=== PATIENT | female | born 1955 | race African-American/Black ===

== ENCOUNTER 2016-12-30 19:48 | Emergency (ER) | payer OTHER ==
[2016-12-30] MEDS ORDERED: ASPIRIN 81 MG TABLET, CHEWABLE PO ONE (21:13)
--- NOTE | 2016-12-30 21:38 | EKG REPORT ---
SEVERITY:- NORMAL ECG - SINUS RHYTHM : Confirmed by: Drea Edwards 30-Dec-2016 21:37:58
--- NOTE | 2016-12-30 21:50 | RADIOLOGY REPORT (SQ) ---
EXAM DESCRIPTION: CHEST SINGLE VIEW COMPLETED DATE/TIME: 12/30/2016 9:42 pm REASON FOR STUDY: chest pain COMPARISON: 2016. NUMBER OF VIEWS: One view. TECHNIQUE: Single frontal radiographic view of the chest acquired. LIMITATIONS: None. FINDINGS: LUNGS AND PLEURA: No opacities, masses or pneumothorax. No pleural effusion. MEDIASTINUM AND HILAR STRUCTURES: Stable contours. HEART AND VASCULAR STRUCTURES: Heart normal in size. Normal vasculature. BONES: No acute findings. HARDWARE: None in the chest. OTHER: No other significant finding. IMPRESSION: NO SIGNIFICANT RADIOGRAPHIC FINDING IN THE CHEST. TECHNICAL DOCUMENTATION: JOB ID: [id number] [employer]- All Rights Reserved
[2016-12-30 22:29] LABS: ABSOLUTE EOSINOPHILS # (AUTO) 0.2 10^3/uL (0.0-0.6); ABSOLUTE LYMPHOCYTES (AUTO) 1.8 10^3/uL (0.5-4.7); ABSOLUTE MONOCYTES (AUTO) 0.6 10^3/uL (0.1-1.4); ABSOLUTE NEUT (AUTO) 5.2 10^3/uL (1.7-8.2); BASOPHILS % (AUTO) 0.5 % (0-2); EOSINOPHILS % (AUTO) 2.5 % (0-6); HEMATOCRIT 42.4 % (36.0-47.0); HEMOGLOBIN 13.4 g/dL (12.0-15.5); HGB HCT DIFFERENCE -2.2; LYMPHOCYTES % (AUTO) 22.6 % (13-45); MEAN CORPUSCULAR HGB CONC 31.7 g/dL (32.0-36.0); MEAN CORPUSCULAR VOLUME 85 fl (80-97); MONOCYTES % (AUTO) 7.9 % (3-13); RED BLOOD COUNT 4.98 10^6/uL (3.72-5.28); RED CELL DISTRIBUTION WIDTH 14.9 % (11.5-14.0); SEGMENTED NEUTROPHILS % (AUTO) 66.5 % (42-78); WHITE BLOOD COUNT 7.8 10^3/uL (4.0-10.5)
[2016-12-30 22:43] LABS: ALANINE AMINOTRANSFERASE 17 U/L (9-52); ALBUMIN 3.9 g/dL (3.5-5.0); ALKALINE PHOSPHATASE 74 U/L (38-126); ASPARTATE AMINO TRANSFERASE 12 U/L (14-36); BILIRUBIN,DIRECT 0.3 mg/dL (0.0-0.4); BILIRUBIN,TOTAL 0.4 mg/dL (0.2-1.3); BLOOD UREA NITROGEN 10 mg/dL (7-20); CALCIUM 9.1 mg/dL (8.4-10.2); CARBON DIOXIDE 27 mmol/L (22-30); CREATINE KINASE 101 U/L (30-135); CREATININE RESULT 0.76 mg/dL (0.52-1.25); GLUCOSE 110 mg/dL (75-110); POTASSIUM 3.5 mmol/L (3.6-5.0); SODIUM 141.5 mmol/L (137-145); TOTAL PROTEIN 7.4 g/dL (6.3-8.2)
[2016-12-30 22:44] LABS: ANION GAP 11 (5-19); CHLORIDE 104 mmol/L (98-107)
[2016-12-30 22:54] LABS: CREATINE KINASE MB 0.35 ng/mL (<4.55)
[2016-12-30 22:55] LABS: TROPONIN I < 0.012 ng/mL
[2016-12-31] MEDS ORDERED: LIDOCAINE 5% (700 MG) TRANSDERMAL ADH..PATCH TP ONE (00:15)
[2016-12-31] MEDS ORDERED: POTASSIUM CHLORIDE 10 MEQ TABLET.SA PO ONE (00:15)
--- NOTE | 2016-12-31 02:08 | ER Document Report ---
ED General - General Chief Complaint: Chest Pain Stated Complaint: CHEST PAIN Time Seen by Provider: 12/30/16 23:32 TRAVEL OUTSIDE OF THE [place] IN LAST 30 DAYS: No - HPI Patient complains to provider of: Shortness of breath chest wall pain Notes: Coming in for evaluation shortness of breath chest wall pain ongoing since day prior to arrival. Patient states she has been on Levaquin for the past 4 days given to her by PCP for coughing up sputum production. Patient denies currently any fever chills nausea vomiting abdominal pain diarrhea. Patient denies any recent travel. Upon my evaluation patient is asymptomatic. Chest pain worsened with movement. - Related Data Allergies/Adverse Reactions: oxycodone [From Percocet] Adverse Reaction (Mild, Verified 02/11/16 14:41) Hallucinations Home Medications: Current Home Medications Azithromycin [Azithromycin] 250 mg PO DAILY 12/31/16 [History] Levofloxacin [Levofloxacin] 500 mg PO DAILY 12/31/16 [History] Omeprazole [Omeprazole] 20 mg PO BID 12/31/16 [History] Sertraline HCl [Sertraline HCl] 50 mg PO DAILY 12/31/16 [History] Past Medical History - Social History Smoking Status: Unknown if Ever Smoked Family History: Reviewed & Not Pertinent Patient has suicidal ideation: No Patient has homicidal ideation: No - Past Medical History Cardiac Medical History: Reports: Hx Hypertension - History an physical suspicious for hypertension, she does not take any meds Renal/ Medical History: Denies: Hx Peritoneal Dialysis GI Medical History: Reports: Hx Gastroesophageal Reflux Disease Musculoskeltal Medical History: Reports Hx Arthritis - Arthritis in the knees and right shoulder Past Surgical History: Reports: Hx Section, Hx Gynecologic Surgery - 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, d&C, Hx Hysterectomy - Immunizations Hx Diphtheria, Pertussis, Tetanus Vaccination: - more than 5 yrs ago Review of Systems - Review of Systems Constitutional: No symptoms reported EENT: No symptoms reported Cardiovascular: Chest pain Respiratory: No symptoms reported Gastrointestinal: No symptoms reported Genitourinary: No symptoms reported Female Genitourinary: No symptoms reported Musculoskeletal: No symptoms reported Skin: No symptoms reported Hematologic/Lymphatic: No symptoms reported Neurological/Psychological: No symptoms reported Physical Exam - Vital signs Vitals: Temp Pulse Resp BP Pulse Ox 97.8 F 100 20 149/97 H 96 12/30/16 20:00 12/30/16 20:00 12/30/16 20:00 12/30/16 20:00 12/30/16 20:00 Interpretation: Normal - General General appearance: Appears well, Alert - HEENT Head: Normocephalic, Atraumatic Eyes: Normal Pupils: PERRL - Respiratory Respiratory status: No respiratory distress Chest status: Tender - Tenderness to palpation of substernal chest left chest does reproduce patient's pain. Breath sounds: Normal Chest palpation: Normal - Cardiovascular Rhythm: Regular Heart sounds: Normal auscultation Murmur: No - Abdominal Inspection: Normal Distension: No distension Bowel sounds: Normal Tenderness: Nontender Organomegaly: No organomegaly - Back Back: Normal, Nontender - Extremities General upper extremity: Normal inspection, Nontender, Normal color, Normal ROM , Normal temperature General lower extremity: Normal inspection, Nontender, Normal color, Normal ROM , Normal temperature, Normal weight bearing. No: Loy's sign - Neurological Neuro grossly intact: Yes Cognition: Normal Orientation: AAOx4 [place] Coma Scale Eye Opening: Spontaneous [place] Coma Scale Verbal: Oriented [place] Coma Scale Motor: Obeys Commands [place] Coma Scale Total: 15 Speech: Normal Motor strength normal: LUE, RUE, LLE, RLE Sensory: Normal - Psychological Associated symptoms: Normal affect, Normal mood - Skin Skin Temperature: Warm Skin Moisture: Dry Skin Color: Normal Course - Re-evaluation Re-evalutation: 12/31/16 02:40 The patient has atypical chest pain as the patient's chest pain is not suggestive of pulmonary embolus, cardiac ischemia, aortic dissection, or other serious etiology. Given the extremely low risk of these diagnoses further testing and evaluation for these possibilities does not appear to be indicated at this time. The patient has been instructed to return if the symptoms worsen or change in any way. - Vital Signs Vital signs: Temp Pulse Resp BP Pulse Ox 97.8 F 100 25 H 121/83 95 12/30/16 20:00 12/30/16 20:00 12/31/16 02:01 12/31/16 02:01 12/31/16 02:01 - Laboratory Result Diagrams: 12/30/16 22:15 12/30/16 22:15 Laboratory results interpreted by me: 12/30/16 12/30/16 22:15 22:15 MCHC 31.7 L RDW 14.9 H Potassium 3.5 L AST 12 L Discharge - Discharge Clinical Impression: Chest wall pain Condition: Good Disposition: HOME, SELF-CARE Instructions: Anti-Inflammatory Medication ([facility]), Chest Pain of Unclear Cause ( [facility]), Chest Wall Pain ([facility]) Additional Instructions: Your laboratory testing today does not show any signs of ischemia or heart damage. I would highly recommend she continue your antibiotics follow-up with your primary care physician. I do believe your chest pain is due to inflammation of her chest wall but some time we will treat this with anti- inflammatory medication like Motrin. Please make sure to drink plenty of water to stay Forms: Return to Work Referrals: ESTHER BERGMAN PA-C [Primary Care Provider] - Follow up as needed
[2016-12-31 02:12] VITALS: BP 121/83
== END 2016-12-31 02:21 | disposition home or self-care (01) ==
LOC: ER 19:48
DX: R07.89 Other chest pain (principal); R06.02 Shortness of breath; R05 Cough
CPT/HCPCS: 36415; 71010; 80053; 82550; 82553; 83735; 84484; 85025; 93005; 93010; 99285

== ENCOUNTER 2018-07-04 18:37 | Observation (INO) | payer OTHER ==
[2018-07-04] MEDS ORDERED: METOCLOPRAMIDE HCL ORAL SOLN 10 MG/10 ML UDCUP PO ONE (20:15)
[2018-07-04] MEDS ORDERED: LIDOCAINE 2% VISCOUS SOLN 20 ML UDCUP PO ONE (20:15)
[2018-07-04] MEDS ORDERED: MAG HYDROX/AL HYDROX/SIMETH SUSP 30 ML UDCUP PO ONE (20:15)
[2018-07-04] MEDS ORDERED: HYDROCODONE/ACETAMINOPHEN 5-325 MG TABLET PO ONE (20:16)
--- NOTE | 2018-07-04 20:16 | ER Document Report ---
ED Medical Screen (RME) - General Chief Complaint: Chest Pain Stated Complaint: CHEST PAIN Time Seen by Provider: 07/04/18 20:01 Mode of Arrival: Ambulatory TRAVEL OUTSIDE OF THE [place] IN LAST 30 DAYS: No - HPI Onset: Other - Related Data Allergies/Adverse Reactions: oxycodone [From Percocet] Adverse Reaction (Mild, Verified 02/11/16 14:41) Hallucinations Past Medical History - Past Medical History Cardiac Medical History: Reports: Hx Hypertension - History an physical suspicious for hypertension, she does not take any meds Renal/ Medical History: Denies: Hx Peritoneal Dialysis GI Medical History: Reports: Hx Gastroesophageal Reflux Disease Musculoskeltal Medical History: Reports Hx Arthritis - Arthritis in the knees and right shoulder Past Surgical History: Reports: Hx Section, Hx Gynecologic Surgery - 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 Nothing makes it better nothing makes it worse. 07/04/18 20:15 Have seen and evaluated this patient in rapid medical screening examination, he will require further evaluation reassessment and disposition determination by secondary medical provider. - Vital Signs Vital signs: Temp Pulse Resp BP Pulse Ox 98.4 F 95 18 154/98 H 98 07/04/18 18:56 07/04/18 18:56 07/04/18 18:56 07/04/18 18:56 07/04/18 18:56 Doctor's Discharge - Discharge Referrals: ESTHER BERGMAN PA-C [Primary Care Provider] - Follow up as needed
[2018-07-04 21:12] LABS: ABSOLUTE EOSINOPHILS # (AUTO) 0.2 10^3/uL (0.0-0.6); ABSOLUTE LYMPHOCYTES (AUTO) 1.3 10^3/uL (0.5-4.7); ABSOLUTE MONOCYTES (AUTO) 0.4 10^3/uL (0.1-1.4); ABSOLUTE NEUT (AUTO) 5.5 10^3/uL (1.7-8.2); BASOPHILS % (AUTO) 0.1 % (0-2); EOSINOPHILS % (AUTO) 2.3 % (0-6); HEMATOCRIT 43.7 % (36.0-47.0); HEMOGLOBIN 14.6 g/dL (12.0-15.5); LYMPHOCYTES % (AUTO) 17.5 % (13-45); MEAN CORPUSCULAR HEMOGLOBIN 28.8 pg (27.0-33.4); MEAN CORPUSCULAR HGB CONC 33.5 g/dL (32.0-36.0); MEAN CORPUSCULAR VOLUME 86 fl (80-97); MONOCYTES % (AUTO) 5.4 % (3-13); PLATELET COUNT 279 10^3/uL (150-450); RED BLOOD COUNT 5.07 10^6/uL (3.72-5.28); SEGMENTED NEUTROPHILS % (AUTO) 74.7 % (42-78); TOTAL CELLS COUNTED % (AUTO) 100 %; WHITE BLOOD COUNT 7.4 10^3/uL (4.0-10.5)
[2018-07-04 21:24] LABS: ALANINE AMINOTRANSFERASE 19 U/L (9-52); ALBUMIN 4.2 g/dL (3.5-5.0); ALKALINE PHOSPHATASE 74 U/L (38-126); ANION GAP 9 (5-19); ASPARTATE AMINO TRANSFERASE 18 U/L (14-36); BILIRUBIN,DIRECT 0.3 mg/dL (0.0-0.4); BILIRUBIN,TOTAL 0.5 mg/dL (0.2-1.3); BLOOD UREA NITROGEN 8 mg/dL (7-20); CALCIUM 9.5 mg/dL (8.4-10.2); CARBON DIOXIDE 28 mmol/L (22-30); CHLORIDE 104 mmol/L (98-107); CREATINE KINASE 82 U/L (30-135); GLUCOSE 121 mg/dL (75-110); LIPASE 51.5 U/L (23-300); POTASSIUM 4.2 mmol/L (3.6-5.0); SODIUM 140.5 mmol/L (137-145); TOTAL PROTEIN 7.6 g/dL (6.3-8.2)
[2018-07-04 21:37] LABS: CREATINE KINASE MB 0.29 ng/mL (<4.55)
[2018-07-04 21:39] LABS: TROPONIN I < 0.012 ng/mL
--- NOTE | 2018-07-04 22:14 | RADIOLOGY REPORT (SQ) ---
EXAM DESCRIPTION: CT ABDOMEN PELVIS WITH IV CONTRAST COMPLETED DATE/TME: 07/04/2018 20:14 CLINICAL HISTORY: 62 years, Female, concern for appendicitis Comparison: January 25, 2016. TECHNIQUE: Contiguous axial CT images of the abdomen and pelvis were obtained. Sagittal and coronal reformats were reviewed. This exam was performed according to our departmental dose-optimization program, which includes automated exposure control, adjustment of the mA and/or kV according to patient size and/or use of iterative reconstruction technique. FINDINGS: Lung bases: Clear. Liver:Unremarkable. No focal liver lesion. Gallbladder:Unremarkable. No gallstones. No gallbladder wall thickening or pericholecystic fluid. Spleen:Unremarkable Pancreas: Pancreas is unremarkable. Adrenal glands:Within normal limits. Kidneys/ureters: 3 x 2.5 cm left renal cyst. The right kidney is normal in appearance. No hydronephrosis or nephrolithiasis. Stomach/small bowel/colon: Stomach is unremarkable. Small bowel is unremarkable. Colon is unremarkable. Appendix: Appendix not seen with certainty. However, no inflammatory changes or fluid seen in the pericecal region and right lower quadrant. Peritoneum: No free fluid. Vascular structures: within normal limits Lymph nodes: No abnormal lymph nodes. Bladder:Unremarkable. Pelvic organs: The uterus is enlarged and heterogeneous in appearance containing a mural fibroid near the fundus measuring approximately 10 cm. There is also a pedunculated mass extending from the right aspect of the fundus measuring 5 x 8 cm probably representing a pedunculated fibroid. Bones: No acute osseous abnormality. Soft tissues: Unremarkable.. IMPRESSION: No acute intra-abdominal abnormality. Enlarged heterogeneous uterus containing at least two fibroids which have increased in size since the prior exam.
--- NOTE | 2018-07-04 22:55 | EKG REPORT ---
SEVERITY:- BORDERLINE ECG - SINUS RHYTHM PROBABLE LEFT ATRIAL ABNORMALITY : Confirmed by: Denise Banda MD 04-Jul-2018 22:52:40
[2018-07-04] MEDS ORDERED: ASPIRIN 325 MG TABLET PO ONE (23:01)
--- NOTE | 2018-07-04 23:30 | ER Document Report ---
ED General - General Chief Complaint: Chest Pain Stated Complaint: CHEST PAIN Time Seen by Provider: 07/04/18 20:01 Mode of Arrival: Ambulatory Notes: Patient is a 62-year-old female presents with complaint of pain in the substernal area of her chest as well as some pain in the epigastric region. She said this morning she initially thought it was probably related to acid reflux but she says it is little bit different than her typical acid reflux and her acid reflux medication did not make any difference in the pain. As the day went on she notes that she was getting some shortness of breath and worsening pain w ith exertion and therefore she came to the ER. She denies any vomiting. No diarrhea. She is currently she is pain-free as long as she is laying down the bed still. She denies any leg pain or leg swelling. She denies any recent cardiac stress test. She denies previous history of coronary disease. She does have a family history of coronary disease. TRAVEL OUTSIDE OF THE [place] IN LAST 30 DAYS: No - Related Data Allergies/Adverse Reactions: bee venom protein (honey bee) Allergy (Intermediate, Verified 07/05/18 06:36) oxycodone [From Percocet] Adverse Reaction (Mild, Verified 02/11/16 14:41) Hallucinations Past Medical History - Social History Smoking Status: Never Smoker Frequency of alcohol use: None Drug Abuse: None Family History: Reviewed & Not Pertinent Patient has suicidal ideation: No Patient has homicidal ideation: No - Past Medical History Cardiac Medical History: Reports: Hx Hypertension - History an physical suspicious for hypertension, she does not take any meds Renal/ Medical History: Denies: Hx Peritoneal Dialysis GI Medical History: Reports: Hx Gastroesophageal Reflux Disease Musculoskeletal Medical History: Reports Hx Arthritis - Arthritis in the knees and right shoulder Past Surgical History: Reports: Hx Section, Hx Gynecologic Surgery - 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 Denies recent illness. EENT: Denies eye, ear, throat, or mouth pain or symptoms. Denies nasal or sinus congestion. CARDIOVASCULAR: Chest pain RESPIRATORY: Denies cough, cold, or chest congestion. Denies shortness of breath, difficulty breathing, or wheezing. GASTROINTESTINAL: Some epigastric abdominal pain. Denies nausea, vomiting, or diarrhea. GENITOURINARY: Denies difficulty urinating, painful urination, burning, frequency, or blood in urine. FEMALE GENITOURINARY: Denies vaginal bleeding, abnormal or irregular periods. MUSCULOSKELETAL: Denies neck or back pain or joint pain or swelling. SKIN: Denies rash or skin lesions. NEUROLOGICAL: Denies altered mental status or loss of consciousness. Denies he adache. Denies weakness or paralysis or loss of use of either side. Denies problems with gait or speech. Denies sensory or motor loss. ALL OTHER SYSTEMS REVIEWED AND NEGATIVE. Physical Exam - Vital signs Vitals: Temp Pulse Resp BP Pulse Ox 98.4 F 95 18 154/98 H 98 07/04/18 18:56 07/04/18 18:56 07/04/18 18:56 07/04/18 18:56 07/04/18 18:56 - Notes Notes: General Appearance: Well nourished, alert, cooperative, no acute distress, no obvious discomfort. well-appearing. Vitals: reviewed, See vital signs table. Head: no swelling or tenderness to the head Eyes: PERRL, EOMI, Conjuctiva clear Mouth: No decreasd moisture Lungs: No wheezing, No rales, No rhonci, No accessory muscle use, good air exchange bilaterally. Heart: Normal rate, Regular rythm, No murmur, no rub Abdomen: Normal BS, soft, No rigidity, no reproducible abdominal tenderness to palpation., No guarding, no rebound, no abdominal masses, no organomegaly Extremities: strength 5/5 in all extremities, good pulses in all extremities, no swelling or tenderness in the extremities, no edema. Skin: warm, dry, appropriate color, no rash Neuro: speech clear, oriented x 3, normal affect, responds appropriately to questions. Course - Re-evaluation Re-evalutation: 07/05/18 09:13 Exact cause of the patient's chest pain andepigastric pain is not clear. This could be of GI origin however her typical gastric medications did not take away her symptoms and also she had started to develop shortness of breath with exertion as the day went on. This makes it hard for me to pinpoint that this is indeed from GI origin. She has a heart score 4. Feels appropriate to admit her for observation admission for workup of her chest pain. I spoke with Dr. Lazaro who agrees to evaluate the patient for admission. Dictation of this chart was performed using voice recognition software; therefore, there may be some unintended grammatical errors. - Vital Signs Vital signs: Temp Pulse Resp BP Pulse Ox 97.9 F 107 H 18 160/91 H 96 07/05/18 02:40 07/05/18 07:00 07/05/18 02:40 07/05/18 06:33 07/05/18 02:40 - Laboratory Result Diagrams: 07/04/18 20:53 07/04/18 20:53 Laboratory results interpreted by me: 07/04/18 07/04/18 07/04/18 20:53 20:53 20:53 RDW 15.0 H Glucose 121 H TSH 5.96 H Discharge - Discharge Clinical Impression: Chest pain, atypical Condition: Stable Disposition: ADMITTED OBSERVATION Admitting Provider: Hospitalist Unit Admitted: Telemetry
[2018-07-04] MEDS ORDERED: NITROGLYCERIN 0.4 MG/TAB 25 TAB/BOTTLE SL PRN (23:31)
[2018-07-04] MEDS ORDERED: MAG HYDROX/AL HYDROX/SIMETH SUSP 30 ML UDCUP PO PRN (23:31)
[2018-07-05 03:48] LABS: CHOLESTEROL 184.07 mg/dL (0-200); TRIGLYCERIDES 107 mg/dL (<150)
[2018-07-05 03:59] LABS: DIRECT LDL 107 mg/dL (<100)
--- NOTE | 2018-07-05 05:30 | PDOC H&P ---
History of Present Illness Admission Date/PCP: 07/04/18 23:34 ESTHER BERGMAN PA-C Patient complains of: Right-sided chest pain History of Present Illness: JUD CHEATHAM is a 62 year old female with a past medical history of morbid obesity, hypertension and GERD. Patient presents with epigastric and right lower chest wall pain occurring while at rest associated with nausea without vomiting or palpitations or shortness of breath. It is 2 out of 5 intensity, dull in nature, nonradiating. She is unable to identify alleviating or exacerbating factors, and omeprazole provided no relief. Patient denies previous episode, recent change in medications and otherwise feels well. Her workup is unremarkable and is referred to the hospitalist for observation Past Medical History Cardiac Medical History: Reports: Hypertension - History an physical suspicious for hypertension, she does not take any meds GI Medical History: Reports: Gastroesophageal Reflux Disease Musculoskeltal Medical History: Reports: Arthritis - Arthritis in the knees and right shoulder Psychiatric Medical History: Denies: Depression Past Surgical History Past Surgical History: Reports: Section, Hysterectomy Social History Information Source: Patient, [facility] Records Smoking Status: Never Smoker Frequency of Alcohol Use: None Hx Recreational Drug Use: No Hx Prescription Drug Abuse: No - Advance Directive Resuscitation Status: Full Code Family History Family History: Malignancy - Lung, liver cancer in mother and father Parental Family History Reviewed: Yes Children Family History Reviewed: Yes Sibling(s) Family History Reviewed.: Yes Medication/Allergy Home Medications: Azithromycin 250 mg PO DAILY 12/31/16 Levofloxacin 500 mg PO DAILY 12/31/16 Omeprazole 20 mg PO BID 12/31/16 Sertraline HCl 50 mg PO DAILY 12/31/16 Allergies/Adverse Reactions: oxycodone [From Percocet] Adverse Reaction (Mild, Verified 02/11/16 14:41) Hallucinations Review of Systems Constitutional: ABSENT: chills, fever(s), headache(s), weight gain, weight loss Eyes: ABSENT: visual disturbances Ears: ABSENT: hearing changes Cardiovascular: ABSENT: chest pain, dyspnea on exertion, edema, orthropnea, palpitations Respiratory: ABSENT: cough, hemoptysis Gastrointestinal: ABSENT: abdominal pain, constipation, diarrhea, hematemesis, hematochezia, nausea, vomiting Genitourinary: ABSENT: dysuria, hematuria Musculoskeletal: ABSENT: joint swelling Integumentary: ABSENT: rash, wounds Neurological: ABSENT: abnormal gait, abnormal speech, confusion, dizziness, focal weakness, syncope Psychiatric: ABSENT: anxiety, depression, homidical ideation, suicidal ideation Endocrine: ABSENT: cold intolerance, heat intolerance, polydipsia, polyuria Hematologic/Lymphatic: ABSENT: easy bleeding, easy bruising Physical Exam Vital Signs: Temp Pulse Resp BP Pulse Ox 97.9 F 101 H 18 177/90 H 96 07/05/18 02:40 07/05/18 02:40 07/05/18 02:40 07/05/18 02:40 07/05/18 02:40 Intake & Output 07/03/18 07/04/18 07/05/18 11:59 11:59 11:59 Weight 150 kg General appearance: PRESENT: no acute distress, well-developed, well-nourished Head exam: PRESENT: atraumatic, normocephalic Eye exam: PRESENT: conjunctiva pink, EOMI, PERRLA. ABSENT: scleral icterus Ear exam: PRESENT: normal external ear exam Mouth exam: PRESENT: moist, tongue midline Neck exam: ABSENT: carotid bruit, JVD, lymphadenopathy, thyromegaly Respiratory exam: PRESENT: clear to auscultation sergio. ABSENT: rales, rhonchi, wheezes Cardiovascular exam: PRESENT: RRR. ABSENT: diastolic murmur, rubs, systolic murmur Pulses: PRESENT: normal dorsalis pedis pul Vascular exam: PRESENT: normal capillary refill GI/Abdominal exam: PRESENT: normal bowel sounds, soft. ABSENT: distended, guarding, mass, organolmegaly, rebound, tenderness Torso Front/Back Image: 1 - Reproducible chest wall pain Rectal exam: PRESENT: deferred Extremities exam: PRESENT: full ROM. ABSENT: calf tenderness, clubbing, pedal edema Neurological exam: PRESENT: alert, awake, oriented to person, oriented to place, oriented to time, oriented to situation, CN II-XII grossly intact. ABSENT: motor sensory deficit Psychiatric exam: PRESENT: appropriate affect, normal mood. ABSENT: homicidal ideation, suicidal ideation Skin exam: PRESENT: dry, intact, warm. ABSENT: cyanosis, rash Results Laboratory Results: 07/04/18 20:53 07/04/18 20:53 07/04/18 07/04/18 07/04/18 20:53 20:53 20:53 WBC 7.4 RBC 5.07 Hgb 14.6 Hct 43.7 MCV 86 MCH 28.8 MCHC 33.5 RDW 15.0 H Plt Count 279 Seg Neutrophils % 74.7 Lymphocytes % 17.5 Monocytes % 5.4 Eosinophils % 2.3 Basophils % 0.1 Absolute Neutrophils 5.5 Absolute Lymphocytes 1.3 Absolute Monocytes 0.4 Absolute Eosinophils 0.2 Absolute Basophils 0.0 Sodium 140.5 Potassium 4.2 Chloride 104 Carbon Dioxide 28 Anion Gap 9 BUN 8 Creatinine 0.58 Est GFR ( Amer) > 60 Est GFR (Non-Af Amer) > 60 Glucose 121 H Calcium 9.5 Total Bilirubin 0.5 AST 18 ALT 19 Alkaline Phosphatase 74 Total Protein 7.6 Albumin 4.2 Triglycerides Cholesterol LDL Cholesterol Direct VLDL Cholesterol HDL Cholesterol Lipase 51.5 TSH 5.96 H 07/05/18 03:25 WBC RBC Hgb Hct MCV MCH MCHC RDW Plt Count Seg Neutrophils % Lymphocytes % Monocytes % Eosinophils % Basophils % Absolute Neutrophils Absolute Lymphocytes Absolute Monocytes Absolute Eosinophils Absolute Basophils Sodium Potassium Chloride Carbon Dioxide Anion Gap BUN Creatinine Est GFR ( Amer) Est GFR (Non-Af Amer) Glucose Calcium Total Bilirubin AST ALT Alkaline Phosphatase Total Protein Albumin Triglycerides 107 Cholesterol 184.07 LDL Cholesterol Direct 107 H VLDL Cholesterol 21.0 HDL Cholesterol 39 L Lipase TSH 07/04/18 07/04/18 07/05/18 20:53 20:53 03:25 Creatine Kinase 82 CK-MB (CK-2) 0.29 Troponin I < 0.012 < 0.012 Impressions: Abdomen/Pelvis CT 07/04/18 20:14 IMPRESSION: No acute intra-abdominal abnormality. Enlarged heterogeneous uterus containing at least two fibroids which have increased in size since the prior exam. Assessment & Plan - Diagnosis (1) Chest pain, atypical Is this a current diagnosis for this admission?: Yes Plan: Atypical chest pain though the patient's pain is atypical there are multiple risk factors for coronary artery disease and subsequently will observe and evaluation of acute coronary syndrome versus coronary artery disease with anginal equivalents. Cardiac monitoring blood pressure Q6 hours ,TSH, lipid profile, serial cardiac enzymes and cardiac stress test (2) Hypertension Is this a current diagnosis for this admission?: Yes Plan: Outpatient regiment with hydralazine as needed (3) GERD (gastroesophageal reflux disease) Is this a current diagnosis for this admission?: Yes Plan: Omeprazole twice daily (4) Morbid obesity Is this a current diagnosis for this admission?: Yes Plan: Morbid obesity will evaluate for metabolic cause with evaluation of thyroid function and dietitian consultation - Time Time Spent: 30 to 50 Minutes
[2018-07-05] MEDS: LANSOPRAZOLE 15 MG TAB.RAP.DR PO SCH ×2 (05:41→18:03)
[2018-07-05] MEDS: HYDRALAZINE HCL INJ/PF 20 MG/1 ML SDV IV PRN ×2 (05:41→21:48)
[2018-07-05] MEDS: SERTRALINE HCL 50 MG TABLET PO SCH (11:39)
[2018-07-05] MEDS ORDERED: REGADENOSON INJ 0.4 MG/5 ML DISP.SYRIN IV ONE (12:11)
[2018-07-05] MEDS ORDERED: ACETAMINOPHEN 325 MG TABLET PO PRN (12:28)
[2018-07-05] MEDS ORDERED: LANSOPRAZOLE 15 MG TAB.RAP.DR PO ONE (13:00)
--- NOTE | 2018-07-05 13:19 | PDOC PROGRESS REPORT ---
Subjective Progress Note for:: 07/05/18 Subjective:: This is 62 years old black female patient presented with chief complaint of right-sided chest pain. Patient has underlying morbid obesity, hypertension and gastroesophageal reflux disease. Her first 2 sets of cardiac enzymes are negative no EKG changes this morning patient undergoes first part of cardiac stress test the next will be done tomorrow. If it is negative patient's potential discharge for tomorrow. Reason For Visit: CHEST PAIN,MORBID OBESITY Physical Exam Vital Signs: Temp Pulse Resp BP Pulse Ox 98.5 F 104 H 18 148/92 H 97 07/05/18 07:38 07/05/18 07:38 07/05/18 07:38 07/05/18 07:38 07/05/18 07:38 Intake & Output 07/04/18 07/05/18 07/06/18 06:59 06:59 06:59 Intake Total 0 Balance 0 Weight 150 kg General appearance: PRESENT: no acute distress, morbidly obese Head exam: PRESENT: atraumatic, normocephalic Eye exam: PRESENT: conjunctiva pink Neck exam: ABSENT: carotid bruit, JVD, lymphadenopathy, thyromegaly Respiratory exam: PRESENT: clear to auscultation sergio. ABSENT: rales, rhonchi, wheezes Cardiovascular exam: PRESENT: tachycardia GI/Abdominal exam: PRESENT: normal bowel sounds, soft. ABSENT: distended, guarding, mass, organolmegaly, rebound, tenderness Neurological exam: PRESENT: alert, awake, oriented to time, oriented to situation Results Laboratory Results: 07/04/18 20:53 07/04/18 20:53 07/04/18 07/04/18 07/04/18 20:53 20:53 20:53 WBC 7.4 RBC 5.07 Hgb 14.6 Hct 43.7 MCV 86 MCH 28.8 MCHC 33.5 RDW 15.0 H Plt Count 279 Seg Neutrophils % 74.7 Lymphocytes % 17.5 Monocytes % 5.4 Eosinophils % 2.3 Basophils % 0.1 Absolute Neutrophils 5.5 Absolute Lymphocytes 1.3 Absolute Monocytes 0.4 Absolute Eosinophils 0.2 Absolute Basophils 0.0 Sodium 140.5 Potassium 4.2 Chloride 104 Carbon Dioxide 28 Anion Gap 9 BUN 8 Creatinine 0.58 Est GFR ( Amer) > 60 Est GFR (Non-Af Amer) > 60 Glucose 121 H Calcium 9.5 Total Bilirubin 0.5 AST 18 ALT 19 Alkaline Phosphatase 74 Total Protein 7.6 Albumin 4.2 Triglycerides Cholesterol LDL Cholesterol Direct VLDL Cholesterol HDL Cholesterol Lipase 51.5 TSH 5.96 H 07/05/18 03:25 WBC RBC Hgb Hct MCV MCH MCHC RDW Plt Count Seg Neutrophils % Lymphocytes % Monocytes % Eosinophils % Basophils % Absolute Neutrophils Absolute Lymphocytes Absolute Monocytes Absolute Eosinophils Absolute Basophils Sodium Potassium Chloride Carbon Dioxide Anion Gap BUN Creatinine Est GFR ( Amer) Est GFR (Non-Af Amer) Glucose Calcium Total Bilirubin AST ALT Alkaline Phosphatase Total Protein Albumin Triglycerides 107 Cholesterol 184.07 LDL Cholesterol Direct 107 H VLDL Cholesterol 21.0 HDL Cholesterol 39 L Lipase TSH 07/04/18 07/04/18 07/05/18 20:53 20:53 03:25 Creatine Kinase 82 CK-MB (CK-2) 0.29 Troponin I < 0.012 < 0.012 07/05/18 09:15 Creatine Kinase CK-MB (CK-2) Troponin I < 0.012 Impressions: Abdomen/Pelvis CT 07/04/18 20:14 IMPRESSION: No acute intra-abdominal abnormality. Enlarged heterogeneous uterus containing at least two fibroids which have increased in size since the prior exam. Assessment & Plan - Diagnosis (1) Chest pain, atypical Is this a current diagnosis for this admission?: Yes Plan: Patient is undergoing cardiac stress test. (2) GERD (gastroesophageal reflux disease) Is this a current diagnosis for this admission?: Yes Plan: Continue PPI (3) Hypertension Qualifiers: Hypertension type: essential hypertension Qualified Code(s): I10 - Essential (primary) hypertension Is this a current diagnosis for this admission?: Yes Plan: Continue home medications. (4) Morbid obesity with BMI of 45.0-49.9, adult Is this a current diagnosis for this admission?: Yes Plan: Patient advised to do lifestyle modification.
--- NOTE | 2018-07-05 19:14 | EKG REPORT ---
SEVERITY:- ABNORMAL ECG - SINUS TACHYCARDIA LEFT ATRIAL ABNORMALITY : Confirmed by: Denise Banda MD 05-Jul-2018 19:14:18
[2018-07-05] MEDS ORDERED: HYDRALAZINE HCL INJ/PF 20 MG/1 ML SDV ONE (21:29)
[2018-07-05] MEDS ORDERED: ATORVASTATIN CALCIUM 80 MG TABLET PO SCH (22:00)
[2018-07-06] MEDS: LANSOPRAZOLE 15 MG TAB.RAP.DR PO SCH (05:20)
--- NOTE | 2018-07-06 13:50 | PDOC DISCHARGE SUMMARY ---
General - Admit/Disc Date/PCP Admission Date/Primary Care Provider: 07/04/18 23:34 ESTHER BERGMAN PA-C Discharge Date: 07/06/18 - Discharge Diagnosis (1) Chest pain, atypical Is this a current diagnosis for this admission?: Yes (2) GERD (gastroesophageal reflux disease) Is this a current diagnosis for this admission?: Yes (3) Hypertension Is this a current diagnosis for this admission?: Yes (4) Morbid obesity with BMI of 45.0-49.9, adult Is this a current diagnosis for this admission?: Yes - Additional Information Resuscitation Status: Full Code Home Medications: Omeprazole 20 mg PO BID 12/31/16 History of Present Illness History of Present Illness: JUD CHEATHAM is a 62 year old femalewith a past medical history of morbid obesity, hypertension and GERD. Patient presents with epigastric and right lower chest wall pain occurring while at rest associated with nausea without vomiting or palpitations or shortness of breath. It is 2 out of 5 intensity, dull in nature, nonradiating. She is unable to identify alleviating or exacerbating factors, and omeprazole provided no relief. Patient denies previous episode, recent change in medications and otherwise feels well. Her workup is unremarkable and is referred to the hospitalist for observation Hospital Course Hospital Course: This is 62 years old black female patient presented with chief complaint of right-sided chest pain. Patient has underlying morbid obesity, hypertension and gastroesophageal reflux disease. Her first 2 sets of cardiac enzymes are negat sejal no EKG changes. This morning patient undergoes second part of cardiac stress test and it is negative. Patient remained chest pain-free. Patient is stable enough to be discharged today. I advised her to do lifestyle modification as a form of her diet regular exercise and weight loss and she v oices agreement. She is going to have a follow-up with Dr. Banda as outpatient. Physical Exam Vital Signs: Temp Pulse Resp BP Pulse Ox 98.3 F 93 20 142/89 H 94 07/06/18 12:21 07/06/18 12:21 07/06/18 12:21 07/06/18 12:21 07/06/18 12:21 Intake & Output 07/05/18 07/06/18 07/07/18 06:59 06:59 06:59 Intake Total 0 1186 Balance 0 1186 Weight 150 kg 150.8 kg General appearance: PRESENT: morbidly obese Head exam: PRESENT: atraumatic, normocephalic Eye exam: PRESENT: conjunctiva pink, EOMI, PERRLA. ABSENT: scleral icterus Ear exam: PRESENT: normal external ear exam Mouth exam: PRESENT: moist, tongue midline Neck exam: ABSENT: carotid bruit, JVD, lymphadenopathy, thyromegaly Respiratory exam: PRESENT: clear to auscultation sergio. ABSENT: rales, rhonchi, wheezes Cardiovascular exam: PRESENT: RRR. ABSENT: diastolic murmur, rubs, systolic murmur Pulses: PRESENT: normal dorsalis pedis pul Vascular exam: PRESENT: normal capillary refill GI/Abdominal exam: PRESENT: normal bowel sounds, soft. ABSENT: distended, guarding, mass, organolmegaly, rebound, tenderness Rectal exam: PRESENT: deferred Extremities exam: PRESENT: full ROM. ABSENT: calf tenderness, clubbing, pedal edema Neurological exam: PRESENT: alert, awake, oriented to person, oriented to place, oriented to time, oriented to situation, CN II-XII grossly intact. ABSENT: motor sensory deficit Psychiatric exam: PRESENT: appropriate affect, normal mood. ABSENT: homicidal ideation, suicidal ideation Skin exam: PRESENT: dry, intact, warm. ABSENT: cyanosis, rash Results Laboratory Results: 07/04/18 20:53 07/04/18 20:53 07/04/18 07/04/18 07/05/18 20:53 20:53 03:25 Creatine Kinase 82 CK-MB (CK-2) 0.29 Troponin I < 0.012 < 0.012 07/05/18 07/05/18 09:15 15:30 Creatine Kinase CK-MB (CK-2) Troponin I < 0.012 < 0.012 Impressions: Abdomen/Pelvis CT 07/04/18 20:14 IMPRESSION: No acute intra-abdominal abnormality. Enlarged heterogeneous uterus containing at least two fibroids which have increased in size since the prior exam. Qualifiers - * PATIENT BEING DISCHARGED WITH ANY OF THE FOLLOWING DIAGNOSIS: No
[2018-07-06] MEDS: SERTRALINE HCL 50 MG TABLET PO SCH (13:57)
[2018-07-06 14:20] VITALS: BP 160/91
--- NOTE | 2018-07-06 23:15 | DRAGON STRESS TEST REPORT ---
2 Day Intravenous Lexiscan Cardiolite stress test using single photon emmision computerized tomography. Date of Resting procedure: 07/05/2018. Date of Stress procedure: 07/06/2018. Ordering Provider: Dr. Augie Lazaro. Indication: Chest pain. Coronary risk factors: Age, and hypertension. Resting EKG: Sinus Rhythm. Within Normal Limits. Stress EKG: No changes of ischemia. The patient had no chest pain or discomfort, and there were no arrhythmias seen. Reason for termination: Protocol. Conclusions: Normal EKG and hemodynamic response to IV Lexiscan. Nuclear data: At rest, on 07/05/2018 the patient was given 40.9 millicuries of technetium 99m sestamibi injected intravenously. As per protocol rest gated SPECT images were obtained. Subsequently, on 07/06/2018 the patient was given intravenous Lexiscan at a dose of 0.4 mg in 5 mL intravenously, followed by flush with normal saline. Subsequently after above Lexiscan injection, the stress dose of 41.5 millicuries of technetium 99m sestamibi was injected intravenously. As per protocol stress gated images were obtained. Nuclear interpretation: Review of images showed that all segments of the myocardium had normal perfusion at rest, and normal perfusion post stress with IV Lexiscan. All segments of the myocardium had normal motion, contraction, and thickening by gated study. T. I D. ratio was normal at 1.17. There is no transient ischemic left ventricular dilatation. Computer read rest, and stress left ventricular ejection fraction were 41 %, and 49 %, respectively. Visually both the stress and rest ejection fractions were normal, and greater than 55%. Conclusion: 1. There is no scintigraphic evidence of Lexiscan induced myocardial ischemia. 2. There is no scintigraphic evidence of myocardial infarction/scar. Recommendations: Aggressive risk factor modification, and treating the underlying co- morbidities. MTDD
== END 2018-07-06 15:10 | disposition home or self-care (01) ==
LOC: ER 18:37 → EH 23:34 → 5 07-05 02:38
PROVIDERS: ADMIT Internal Medicine; ATTEND Internal Medicine
DX: R07.89 Other chest pain (principal); K21.9 Gastro-esophageal reflux disease without esophagitis; I10 Essential (primary) hypertension; E66.01 Morbid (severe) obesity due to excess calories; R00.0 Tachycardia, unspecified; R06.02 Shortness of breath; R10.13 Epigastric pain; R11.0 Nausea; Z68.42 Body mass index [BMI] 45.0-49.9, adult; Z79.899 Other long term (current) drug therapy; Z80.0 Family history of malignant neoplasm of digestive organs
CPT/HCPCS: 93005 ×2; 99285; 36415 ×2; 82553; 82550; 83690; 84443; 85025; 80053; 84484 ×2; 83036; 80061; 93017; 78452; 74177; 93010 ×2; G0378 ×4; A9500; J2785; J0360; J3490 ×2; Q9969

== ENCOUNTER 2018-07-10 19:06 | Emergency (ER) | payer OTHER ==
[2018-07-10] MEDS ORDERED: KETOROLAC TROMETHAMINE INJ/PF 30 MG/1 ML SDV IV ONE (19:38)
[2018-07-10] MEDS ORDERED: ONDANSETRON HCL INJ/PF 4 MG/2 ML SDV IV ONE (19:38)
--- NOTE | 2018-07-10 19:41 | ER Document Report ---
ED Medical Screen (RME) - General Chief Complaint: Chest Pain Stated Complaint: SHORTNESS OF BREATH Time Seen by Provider: 07/10/18 19:34 Notes: 62 years old female presents today with right upper quadrant and right lower chest wall pain about hour and a half after eating her meal at 3:00. Since then continuous pain with nausea. No vomiting. No fever chills. Denies any precordial chest pain. Denies any difficulty in breathing. Morbid obesity, right upper quadrant tenderness and right lower chest wall tenderness 2. TRAVEL OUTSIDE OF THE [place] IN LAST 30 DAYS: No - Related Data Allergies/Adverse Reactions: bee venom protein (honey bee) Allergy (Intermediate, Verified 07/05/18 06:36) oxycodone [From Percocet] Adverse Reaction (Mild, Verified 02/11/16 14:41) Hallucinations Past Medical History - Social History Chew tobacco use (# tins/day): No Frequency of alcohol use: None Drug Abuse: None - Past Medical History Cardiac Medical History: Reports: Hx Hypertension - History an physical suspicious for hypertension, she does not take any meds Renal/ Medical History: Denies: Hx Peritoneal Dialysis GI Medical History: Reports: Hx Gastroesophageal Reflux Disease Musculoskeltal Medical History: Reports Hx Arthritis - Arthritis in the knees and right shoulder Psychiatric Medical History: Denies: Hx Depression Past Surgical History: Reports: Hx Section, Hx Gynecologic Surgery - 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
--- NOTE | 2018-07-10 20:46 | RADIOLOGY REPORT (SQ) ---
EXAM DESCRIPTION: U/S ABDOMEN LIMITED W/O DOP COMPLETED DATE/TIME: 07/10/2018 8:37 pm REASON FOR STUDY: Right upper quadrant abdominal tenderness COMPARISON: None. TECHNIQUE: 01/23/2016 Dynamic and static grayscale images acquired of the abdomen and recorded on PACS. Additional selected color Doppler and spectral images recorded. LIMITATIONS: None. FINDINGS: PANCREAS: Not seen. LIVER: Increased echogenicity. No mass. LIVER VASCULATURE: Normal directional flow of the main portal vein and hepatic veins. GALLBLADDER: No stones. Normal wall thickness. No pericholecystic fluid. ULTRASOUND-DETECTED MCCRARY'S SIGN: Negative. INTRAHEPATIC DUCTS AND COMMON DUCT: CBD and intrahepatic ducts normal caliber. No filling defects. INFERIOR VENA CAVA: Not imaged. AORTA: No aneurysm. RIGHT KIDNEY: Normal size, 11.2 cm. Normal echogenicity. No solid or suspicious masses. No hydroneph rosis. No calcifications. PERITONEAL AND RIGHT PLEURAL SPACE: No ascites or effusions. OTHER: No other significant findings. IMPRESSION: Fatty infiltration of the liver. TECHNICAL DOCUMENTATION: JOB ID: [id number] [employer]- All Rights Reserved Reading location - IP/workstation name: [email or web address]
[2018-07-10 20:58] LABS: ABSOLUTE LYMPHOCYTES (AUTO) 1.3 10^3/uL (0.5-4.7); ABSOLUTE MONOCYTES (AUTO) 0.6 10^3/uL (0.1-1.4); BASOPHILS % (AUTO) 0.2 % (0-2); EOSINOPHILS % (AUTO) 0.5 % (0-6); HEMATOCRIT 42.7 % (36.0-47.0); HEMOGLOBIN 14.5 g/dL (12.0-15.5); LYMPHOCYTES % (AUTO) 14.3 % (13-45); MEAN CORPUSCULAR HEMOGLOBIN 28.6 pg (27.0-33.4); MEAN CORPUSCULAR HGB CONC 33.9 g/dL (32.0-36.0); MEAN CORPUSCULAR VOLUME 84 fl (80-97); MONOCYTES % (AUTO) 6.3 % (3-13); PLATELET COUNT 308 10^3/uL (150-450); RED BLOOD COUNT 5.07 10^6/uL (3.72-5.28); RED CELL DISTRIBUTION WIDTH 14.7 % (11.5-14.0); SEGMENTED NEUTROPHILS % (AUTO) 78.7 % (42-78); TOTAL CELLS COUNTED % (AUTO) 100 %; WHITE BLOOD COUNT 8.8 10^3/uL (4.0-10.5)
--- NOTE | 2018-07-10 21:07 | RADIOLOGY REPORT (SQ) ---
EXAM DESCRIPTION: XR CHEST 2 VIEWS COMPLETED DATE/TME: 07/10/2018 19:41 CLINICAL HISTORY: 62 years, Female, Chest pain COMPARISON: 7-17 chest NUMBER OF VIEWS: 2 TECHNIQUE: Frontal and lateral views of the chest LIMITATIONS: None. FINDINGS: Heart size is normal. Lungs are clear. No pneumothorax IMPRESSION: Negative chest copyright 2010 [employer]- All Rights Reserved
[2018-07-10 21:20] LABS: ALANINE AMINOTRANSFERASE 30 U/L (9-52); ALBUMIN 4.8 g/dL (3.5-5.0); ALKALINE PHOSPHATASE 85 U/L (38-126); ANION GAP 13 (5-19); ASPARTATE AMINO TRANSFERASE 31 U/L (14-36); BILIRUBIN,DIRECT 0.3 mg/dL (0.0-0.4); BILIRUBIN,TOTAL 0.5 mg/dL (0.2-1.3); BLOOD UREA NITROGEN 18 mg/dL (7-20); CALCIUM 9.5 mg/dL (8.4-10.2); CARBON DIOXIDE 25 mmol/L (22-30); CHLORIDE 98 mmol/L (98-107); CREATINE KINASE 105 U/L (30-135); GLUCOSE 106 mg/dL (75-110); LIPASE 80.6 U/L (23-300); POTASSIUM 3.5 mmol/L (3.6-5.0); SODIUM 136.4 mmol/L (137-145); TOTAL PROTEIN 8.3 g/dL (6.3-8.2)
[2018-07-10 21:30] LABS: CREATINE KINASE MB 0.36 ng/mL (<4.55)
[2018-07-10 21:31] LABS: TROPONIN I < 0.012 ng/mL
[2018-07-10] MEDS ORDERED: PANTOPRAZOLE SODIUM 40 MG VIAL IV ONE (21:59)
[2018-07-10] MEDS ORDERED: SUCRALFATE 1 GM TABLET PO ONE (22:00)
--- NOTE | 2018-07-10 23:31 | ER Document Report ---
ED General - General Mode of Arrival: Ambulatory Information source: Patient TRAVEL OUTSIDE OF THE [place] IN LAST 30 DAYS: No <YESICA WOMACK - Last Filed: 07/10/18 23:32> <JIGAR CLEMENTS - Last Filed: 07/11/18 01:50> - General Chief Complaint: Chest Pain Stated Complaint: SHORTNESS OF BREATH Time Seen by Provider: 07/10/18 19:34 Notes: Patient is a 62 year old female presenting to the emergency department complaining of chest pain onset today. Patient describes the chest pain as intermittent located over her sternum and to the right side of her chest. Patient states the pain intermittently worsens with breathing and movement. She states her chest pain was minimally relieved with medication given in triage. Patient was recently seen in this emergency department complaining of similar issues and had a negative stress test and stable blood work. (YESICA WOMACK) - Related Data Allergies/Adverse Reactions: bee venom protein (honey bee) Allergy (Intermediate, Verified 07/05/18 06:36) oxycodone [From Percocet] Adverse Reaction (Mild, Verified 02/11/16 14:41) Hallucinations Past Medical History - General Information source: Patient - Social History Smoking Status: Never Smoker Chew tobacco use (# tins/day): No Frequency of alcohol use: None Drug Abuse: None Family History: Reviewed & Not Pertinent Patient has suicidal ideation: No Patient has homicidal ideation: No - Past Medical History Cardiac Medical History: Reports: Hx Hypertension - History an physical suspicious for hypertension, she does not take any meds GI Medical History: Reports: Hx Gastroesophageal Reflux Disease Musculoskeletal Medical History: Reports Hx Arthritis - Arthritis in the knees and right shoulder Past Surgical History: Reports: Hx Section, Hx Gynecologic Surgery - 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, d&C, Hx Hysterectomy - Immunizations Hx Diphtheria, Pertussis, Tetanus Vaccination: - more than 5 yrs ago <YESICA WOMACK - Last Filed: 07/10/18 23:32> Review of Systems - Review of Systems Constitutional: No symptoms reported EENT: No symptoms reported Cardiovascular: See HPI, Chest pain Respiratory: No symptoms reported Gastrointestinal: No symptoms reported Genitourinary: No symptoms reported Female Genitourinary: No symptoms reported Musculoskeletal: No symptoms reported Skin: No symptoms reported Hematologic/Lymphatic: No symptoms reported Neurological/Psychological: No symptoms reported -: Yes All other systems reviewed and negative <YESICA WOMACK - Last Filed: 07/10/18 23:32> Physical Exam <YESICA WOMACK - Last Filed: 07/10/18 23:32> - Vital signs Vitals: Temp Pulse Resp BP Pulse Ox 98.1 F 110 H 20 138/84 H 96 07/10/18 19:28 07/10/18 19:28 07/10/18 19:28 07/10/18 19:28 07/10/18 19:28 - Notes Notes: GENERAL: Alert, interacts well. No acute distress. HEAD: Normocephalic, atraumatic. EYES: Pupils equal, round, and reactive to light. Extraocular movements intact. ENT: Oral mucosa moist, tongue midline. NECK: Full range of motion. Supple. Trachea midline. LUNGS: Clear to auscultation bilaterally, no wheezes, rales, or rhonchi. No respiratory distress. Reproducible right anterior chest wall tenderness to palpation. HEART: Regular rate and rhythm. No murmurs, gallops, or rubs. ABDOMEN: Soft, obese, mild epigastric tenderness to palpation. Non-distended. Bowel sounds present in all 4 quadrants. EXTREMITIES: Moves all 4 extremities spontaneously. NEUROLOGICAL: Alert and oriented x3. Normal speech. PSYCH: Normal affect, normal mood. SKIN: Warm, dry, normal turgor. No rashes or lesions noted. (YESICA WOMACK) Course - Laboratory Result Diagrams: 07/10/18 20:40 07/10/18 20:40 <YESICA WOMACK - Last Filed: 07/10/18 23:32> - Laboratory Result Diagrams: 07/10/18 20:40 07/10/18 20:40 - Diagnostic Test Radiology reviewed: Reports reviewed - EKG Interpretation by Id EKG shows normal: Sinus rhythm Rate: Normal Rhythm: NSR <JIGAR CLEMENTS - Last Filed: 07/11/18 01:50> - Re-evaluation Re-evalutation: 07/11/18 01:00 Patient is a 62-year-old female who had a recent cardiac workup last week with a negative stress test. Patient has reproducible right chest tenderness and also epigastric tenderness that is better after Protonix and Carafate. Troponin negative x2. No acute changes on EKG. D-dimer is negative. No pain currently. Patient will be discharged home and is to follow-up with her doctor. Understands and agrees with plan. Stable for discharge home. (JIGAR CLEMENTS) - Vital Signs Vital signs: Temp Pulse Resp BP Pulse Ox 98.1 F 110 H 20 138/84 H 96 07/10/18 19:28 07/10/18 19:28 07/10/18 19:28 07/10/18 19:28 07/10/18 19:28 - Laboratory Laboratory results interpreted by me: 07/10/18 07/10/18 20:40 20:40 RDW 14.7 H Seg Neutrophils % 78.7 H Sodium 136.4 L Potassium 3.5 L Total Protein 8.3 H Discharge <YESICA WOMACK - Last Filed: 07/10/18 23:32> <JIGAR CLEMENTS - Last Filed: 07/11/18 01:50> - Discharge Clinical Impression: Chest pain, atypical GERD (gastroesophageal reflux disease) Qualifiers: Esophagitis presence: with esophagitis Qualified Code(s): K21.0 - Gastro- esophageal reflux disease with esophagitis Condition: Stable Disposition: HOME, SELF-CARE Instructions: Chest Pain of Unclear Cause ([facility]), Reflux Disease (GERD) ([facility]) Prescriptions: Sucralfate [Carafate 1 gm Tablet] 1 gm PO ACHS #120 tablet Referrals: ESTHER BERGMAN PA-C [Primary Care Provider] - Follow up tomorrow Scribe Attestation: 07/11/18 01:50 I personally performed the services described in the documentation, reviewed and edited the documentation which was dictated to the scribe in my presence, and it accurately records my words and actions. (JIGAR CLEMENTS) Scribe Documentation - Scribe Written by Alcides:: Alcides Wang, 07/10/2017 23:35 acting as scribe for :: Ruben <EYSICA WOMACK - Last Filed: 07/10/18 23:32>
[2018-07-11 01:53] VITALS: BP 107/71
--- NOTE | 2018-07-11 07:53 | EKG REPORT ---
SEVERITY:- ABNORMAL ECG - SINUS TACHYCARDIA LEFT ATRIAL ABNORMALITY BORDERLINE T WAVE ABNORMALITIES : Confirmed by: Alejandro Lr MD 11-Jul-2018 07:52:38
== END 2018-07-11 02:04 | disposition home or self-care (01) ==
LOC: ER 19:06
DX: R07.89 Other chest pain (principal); K21.0 Gastro-esophageal reflux disease with esophagitis; R10.13 Epigastric pain; R06.02 Shortness of breath; Z88.6 Allergy status to analgesic agent
CPT/HCPCS: 93005; 99285; 96374; 96375; 36415; 82553; 82550; 83690; 85025; 80053; 84484; 85379; 71046; 76705; 93010; J1885; S0164; J2405

== ENCOUNTER → 2018-07-29 | Outpatient (CLI) | payer OTHER ==
[2018-07-29 08:09] LABS: ABSOLUTE EOSINOPHILS # (AUTO) 0.2 10^3/uL (0.0-0.6); ABSOLUTE LYMPHOCYTES (AUTO) 1.4 10^3/uL (0.5-4.7); ABSOLUTE MONOCYTES (AUTO) 0.5 10^3/uL (0.1-1.4); ABSOLUTE NEUT (AUTO) 4.4 10^3/uL (1.7-8.2); BASOPHILS % (AUTO) 0.3 % (0-2); EOSINOPHILS % (AUTO) 2.6 % (0-6); HEMATOCRIT 39.8 % (36.0-47.0); HEMOGLOBIN 13.5 g/dL (12.0-15.5); LYMPHOCYTES % (AUTO) 21.4 % (13-45); MEAN CORPUSCULAR HEMOGLOBIN 28.5 pg (27.0-33.4); MEAN CORPUSCULAR HGB CONC 33.9 g/dL (32.0-36.0); MEAN CORPUSCULAR VOLUME 84 fl (80-97); MONOCYTES % (AUTO) 7.6 % (3-13); PLATELET COUNT 252 10^3/uL (150-450); RED BLOOD COUNT 4.74 10^6/uL (3.72-5.28); RED CELL DISTRIBUTION WIDTH 14.7 % (11.5-14.0); SEGMENTED NEUTROPHILS % (AUTO) 68.1 % (42-78); TOTAL CELLS COUNTED % (AUTO) 100 %; WHITE BLOOD COUNT 6.4 10^3/uL (4.0-10.5)
[2018-07-29 08:25] LABS: ALANINE AMINOTRANSFERASE 16 U/L (9-52); ALBUMIN 4.2 g/dL (3.5-5.0); ALKALINE PHOSPHATASE 71 U/L (38-126); ANION GAP 9 (5-19); ASPARTATE AMINO TRANSFERASE 15 U/L (14-36); BILIRUBIN,DIRECT 0.3 mg/dL (0.0-0.4); BILIRUBIN,TOTAL 0.5 mg/dL (0.2-1.3); BLOOD UREA NITROGEN 10 mg/dL (7-20); CALCIUM 9.4 mg/dL (8.4-10.2); CARBON DIOXIDE 34 mmol/L (22-30); CHLORIDE 99 mmol/L (98-107); CHOLESTEROL 171.57 mg/dL (0-200); GLUCOSE 108 mg/dL (75-110); POTASSIUM 3.5 mmol/L (3.6-5.0); SODIUM 141.5 mmol/L (137-145); TOTAL PROTEIN 7.2 g/dL (6.3-8.2); TRIGLYCERIDES 140 mg/dL (<150)
[2018-07-29 08:36] LABS: DIRECT LDL 94 mg/dL (<100)
[2018-07-30 16:27] LABS: FREE T3 3.77 pg/mL (2.77-5.27); FREE T4 (FREE THYROXINE) 0.92 ng/dL (0.78-2.19)
== END ==
LOC: OD 07:25
PROVIDERS: ATTEND Internal Medicine Geriatric Medicine
DX: R94.6 Abnormal results of thyroid function studies (principal); I10 Essential (primary) hypertension; R63.5 Abnormal weight gain; R94.8 Abnormal results of function studies of other organs and systems
CPT/HCPCS: 36415; 80053; 80061; 84439; 84443; 84481; 85025

== ENCOUNTER → 2018-09-19 | Outpatient (CLI) | payer OTHER ==
[2018-09-19 09:14] LABS: FREE T3 4.18 pg/mL (2.77-5.27); FREE T4 (FREE THYROXINE) 1.13 ng/dL (0.78-2.19)
[2018-09-19 09:27] LABS: THYROID STIMULATING HORMONE 8.03 uIU/mL (0.47-4.68)
== END ==
LOC: OD 07:53
PROVIDERS: ATTEND Internal Medicine Geriatric Medicine
DX: R94.6 Abnormal results of thyroid function studies (principal)
CPT/HCPCS: 36415; 84436; 84439; 84443; 84481; 84482; 86376